=== PATIENT | female | born 1995 | race Caucasian/White ===

== ENCOUNTER 2019-03-22 08:01 | Day surgery (SDC) | payer OTHER ==
[2019-03-21 11:46] VITALS: BMI 36.8
[2019-03-22] MEDS ORDERED: Oxymetazoline HCl 0.05% ( 15 ML ) ONE ×2 (09:14→11:42)
[2019-03-22 09:56] LABS: BHCG - Serum Negative (NEGATIVE); Pregs Control Background? CLEAR/WHITE (CLR/WHITE); Pregs Control Bar Appear? YES (CONTROL BAR)
[2019-03-22] MEDS ORDERED: Famotidine/PF 20 mg/2ml Vial ONE (11:21)
[2019-03-22] MEDS ORDERED: Ondansetron PF 4 MG/2 ML Vial ONE (11:21)
[2019-03-22] MEDS ORDERED: Scopolamine 1.5 mg/72 hour Patch ONE (11:29)
[2019-03-22] MEDS ORDERED: Lidocaine 1% w/Epinephrine 1:100K 20 ML VIAL ONE (11:42)
[2019-03-22] MEDS ORDERED: Fentanyl 100 MCG/2 ML VIAL ONE ×2 (11:52→13:42)
[2019-03-22] MEDS ORDERED: Hydrocodone-Acetamin 15 ML UDCUP ONE (15:49)
--- NOTE | 2019-03-23 11:59 | OP ---
DATE OF PROCEDURE: 03/22/2019 PREOPERATIVE DIAGNOSES: 1. Chronic rhinosinusitis. 2. Bilateral inferior turbinate hypertrophy. 3. Chronic adenotonsillitis. 4. Adenotonsillar hypertrophy. POSTOPERATIVE DIAGNOSES: 1. Chronic rhinosinusitis. 2. Bilateral inferior turbinate hypertrophy. 3. Chronic adenotonsillitis. 4. Adenotonsillar hypertrophy. PROCEDURES PERFORMED: 1. Bilateral endoscopic sinus surgery, total ethmoidectomies. 2. Bilateral endoscopic sinus surgery, maxillary antrostomies. 3. Bilateral endoscopic sinus surgery, frontal sinusotomies. 4. Bilateral inferior turbinate submucosal resection. 5. Tonsillectomy and adenoidectomy. ESTIMATED BLOOD LOSS: 20 mL. COMPLICATIONS: None. ANESTHESIA: GETA. PROCEDURE IN DETAIL: After consent was obtained, the patient was identified, brought to the operating room, and placed on the operating table in the supine position. General endotracheal anesthesia and intravenous access were obtained and we proceeded with positioning the patient for oropharyngeal surgery. Oropharyngeal exposure was obtained with a Jordan-Heath mouth gag after a head drape was placed and secured with a towel clip. The Jordan-Heath mouth gag was then suspended from the Pryor tray and palatal elevation was achieved with a red rubber catheter. The right tonsil was addressed first. We used a curved Allis to grasp the tonsil and retract it medially as an anterior pillar incision was made. The retrotonsillar fascial plane was then established and blunt dissection was performed with the suction cautery. Blood vessels were anticipated, identified, and cauterized as they were encountered. Ultimately, dissection was carried to the posterior tonsillar pillar mucosa which was incised hemostatically, as well as the base of tongue connection. The tonsil was then passed off as a specimen and bleeding points within the tonsillar bed were cauterized under direct visualization. We subsequently turned our attention to the contralateral side, where using a similar technique, a near identical procedure was performed. Again, the tonsil was grasped and retracted medially with a curved Allis. The retrotonsillar fascial plane was established and while the anterior pillar was retracted medially. The hemostatic blunt dissection of the tonsil with a suction cautery was performed with blood vessels anticipated, identified, and cauterized as they were encountered. Again, dissection continued to the base of tongue and posterior tonsillar pillar mucosa which was incised in a hemostatic fashion. The tonsillar beds were then carefully inspected and bleeding points were identified and cauterized with a suction cautery. After this portion of the procedure, hemostasis was completely obtained. Under direct mirror visualization, we visualized the adenoid pad. Under direct mirror visualization, we removed the bulk of the adenoid tissue with the adenoid curette. We then packed the nasopharynx for an appropriate period of time with [id number] tonsillar sponges. After a period of observation, we removed the pack. Under indirect mirror visualization, we obtained hemostasis and vaporization of residual adenoid tissue with electrocautery. The patient's oral cavity was copiously irrigated with iced saline and subsequently suctioned. After completion of the procedure, the nasal cavity and oropharynx were irrigated and suctioned as were the gastric contents. The patient was then awakened and transferred to the recovery room where the patient remained in stable condition prior to discharge to Day Stay. Following this, the patient was prepped and draped for standard nasal procedure and the patient was placed in the beach chair position. Following this, a 0-degree endoscope was advanced into the nasal cavity. 1% lidocaine with 1:100,000 epinephrine was injected into the inferior turbinates, middle turbinates, and lateral nasal wall bilaterally. The left middle turbinate had a large debra bullosa deformity noted. A vertical incision was made with a sickle knife from the anterior wall of the left middle turbinate. Following this, the lateral wall of the left middle turbinate was resected using the straight Blakesley forceps and a 0-degree microdebrider. Following this, the uncinate process was visualized bilaterally and the uncinate was anteriorly fractured using a ball-ended probe. Following this, the uncinate was removed using the 0-degree microdebrider and the up-biting Blakesley forceps bilaterally. Following this, the natural maxillary sinus ostia were identified and was gently widened using a 40-degree microdebrider and the straight microdebrider bilaterally. There were purulence present in both maxillary sinuses today. Following this, ethmoidal bulla was punctured on its medial and inferior aspect and was removed using the 0-degree microdebrider bilaterally. Following this, the grand lamella was identified and was punctured into the posterior ethmoidal cells. Working from posterior to anterior, the ethmoidal cells were opened in a mucosal-sparing technique. Following this, 45-degree endoscope along with 40-degree microdebrider blade were used to further open the frontal sinus ostia bilaterally. Following this, the nasal cavity was irrigated. Mirapex was placed within the middle meatus. The patient tolerated the procedure well. Job ID: [id number]
== END 2019-03-22 16:50 | disposition home or self-care (01) ==
LOC: SDC 08:01
PROVIDERS: ATTEND Otolaryngology Plastic Surgery within the Head & Neck
PROC: 099S8ZZ Drainage of Right Frontal Sinus, Via Natural or Artificial Opening Endoscopic (ICD-10-PCS; principal; 2019-03-22)
PROC: 09BL8ZZ Excision of Nasal Turbinate, Via Natural or Artificial Opening Endoscopic (ICD-10-PCS; principal; 2019-03-22)
PROC: 099R8ZZ Drainage of Left Maxillary Sinus, Via Natural or Artificial Opening Endoscopic (ICD-10-PCS; principal; 2019-03-22)
PROC: 0CTQXZZ Resection of Adenoids, External Approach (ICD-10-PCS; principal; 2019-03-22)
PROC: 099V8ZZ Drainage of Left Ethmoid Sinus, Via Natural or Artificial Opening Endoscopic (ICD-10-PCS; principal; 2019-03-22)
PROC: 099Q8ZZ Drainage of Right Maxillary Sinus, Via Natural or Artificial Opening Endoscopic (ICD-10-PCS; principal; 2019-03-22)
PROC: 0CTPXZZ Resection of Tonsils, External Approach (ICD-10-PCS; principal; 2019-03-22)
PROC: 099T8ZZ Drainage of Left Frontal Sinus, Via Natural or Artificial Opening Endoscopic (ICD-10-PCS; principal; 2019-03-22)
PROC: 099U8ZZ Drainage of Right Ethmoid Sinus, Via Natural or Artificial Opening Endoscopic (ICD-10-PCS; principal; 2019-03-22)
DX: J32.8 Other chronic sinusitis (principal); J34.3 Hypertrophy of nasal turbinates; J35.03 Chronic tonsillitis and adenoiditis
CPT/HCPCS: 84703; 85014; 88304; J0131; J2001; J2405; J3010; S0028

== ENCOUNTER 2023-09-29 08:07 | Day surgery (SDC) | payer BC ==
[2023-09-28 09:02] VITALS: BMI 37.8
[2023-09-29] MEDS ORDERED: Midazolam HCl 2 mg/2 ml Vial ONE (08:47)
[2023-09-29] MEDS ORDERED: fentaNYL PF 100 MCG/2 ML SYRINGE ONE ×2 (08:47→10:18)
[2023-09-29] MEDS ORDERED: PROPOFOL 20 ML ONE (08:47)
[2023-09-29] MEDS ORDERED: Lidocaine 1% (PF) 30 ML VIAL ONE (08:48)
[2023-09-29] MEDS ORDERED: Bacitracin Zinc Ointment 30 gm TUBE ONE (08:48)
[2023-09-29] MEDS ORDERED: EPINEPHrine 1 MG/ML VIAL ONE (08:48)
[2023-09-29] MEDS ORDERED: Dexamethasone 20 MG/5 ML VIAL ONE (08:49)
[2023-09-29] MEDS ORDERED: Lidocaine 1% PF 5 ML VIAL ONE (08:49)
[2023-09-29] MEDS ORDERED: Ondansetron PF 4 MG/2 ML Vial ONE ×2 (08:49→10:19)
[2023-09-29] MEDS ORDERED: Oxymetazoline HCl 0.05% (30 ML BOT) ONE (08:51)
[2023-09-29] MEDS ORDERED: Scopolamine 1 mg/72 hour Patch ONE (08:51)
[2023-09-29 09:00] LABS: Hematocrit 42.7 % (36.0-47.0)
[2023-09-29] MEDS ORDERED: Meperidine HCl/PF 25 MG (1 mL) VIAL ONE (10:24)
[2023-09-29] MEDS ORDERED: diphenhydrAMINE 50 MG/ML VIAL ONE (10:45)
[2023-09-29] MEDS ORDERED: HYDROcodone/Acetaminophen 5/325 mg Tablet ONE (11:02)
== END 2023-09-29 11:47 | disposition home or self-care (01) ==
LOC: SDC 08:07
PROVIDERS: ATTEND Otolaryngology Plastic Surgery within the Head & Neck
PROC: 09BM0ZZ Excision of Nasal Septum, Open Approach (ICD-10-PCS; principal; 2023-09-29)
PROC: 09TL0ZZ Resection of Nasal Turbinate, Open Approach (ICD-10-PCS; principal; 2023-09-29)
DX: J34.2 Deviated nasal septum (principal); J34.3 Hypertrophy of nasal turbinates; G50.1 Atypical facial pain; J01.90 Acute sinusitis, unspecified; R51.9 Headache, unspecified; H69.83 Other specified disorders of Eustachian tube, bilateral
CPT/HCPCS: 85014; J0171; J1100; J1200; J2001; J2175; J2250; J2405; J2704